=== PATIENT | male | born 1940 | race Caucasian/White ===

== ENCOUNTER 2017-10-20 08:07 | Day surgery (SDC) | payer MEDICARE ==
[2017-10-15 15:44] VITALS: BMI 37.5
[2017-10-20 08:28] VITALS: RESP 16; TEMP 98.2
[2017-10-20] MEDS ORDERED: LIDOCAINE 1% 20 ML VIAL (10MG/ML) FOR IV START INTRADERMA ONE (08:35)
[2017-10-20] MEDS: LACTATED RINGERS 1,000 ML IV SCH ×2 (08:37→09:26)
[2017-10-20] MEDS ORDERED: PROPOFOL 10 MG/ML 20 ML VIAL IV ONE (09:30)
--- NOTE | 2017-10-20 09:59 | P.PCN ---
Date of Procedure: 10/20/17 Procedure(s) Performed: Procedure: Total colonoscopy. Preoperative diagnosis: Screening for neoplasia. Postoperative diagnosis: Diverticulosis with no evidence of acute diverticulitis , strictures, polyps or cancer. Preparation: HalfLytely prep. Sedation: Was provided by anesthesia. Brief clinical history: The patient is a 77-year-old male who is scheduled for this evaluation for screening for neoplasia age being his risk factor. There is family history of colon cancer in his maternal uncles who had cancer in their late 80s or 90s. The patient had no prior colonoscopy. He has no abdominal complaints, bleeding or anemia. Procedure: With the patient on his left lateral decubitus position and after informed consent and adequate sedation, the perianal area was inspected and it did not show any fissures or fistulas. There were no masses felt on digital rectal examination. The Olympus CFQ 160L video colonoscope was then inserted in the rectum in the usual fashion and advanced to the cecum. There were multiple diverticular orifices seen scattered along the length of the bowel, mostly on the left side and sigmoid with few where on the right side and around the hepatic flexure with no evidence of acute diverticulitis or strictures. No polyps or tumors were seen. I retroflexed the endoscope in the rectum before the endoscope was withdrawn. The patient tolerated the procedure well. Plan: The patient was reassured. Discussed dietary measures. He will follow up with you as planned. At his age, I did not recommend future surveillance colonoscopy and this can be kept as a contingency based on his overall health in the future. He will discuss that with you.
[2017-10-20 10:19] VITALS: BP 151/80; PULSE 77
== END 2017-10-20 10:18 | disposition home or self-care (01) ==
LOC: ORWHC2ENDO 08:07
DX: Z12.11 Encounter for screening for malignant neoplasm of colon (principal); K57.30 Diverticulosis of large intestine without perforation or abscess without bleeding; Z80.0 Family history of malignant neoplasm of digestive organs; I10 Essential (primary) hypertension; Z79.899 Other long term (current) drug therapy; Z79.1 Long term (current) use of non-steroidal anti-inflammatories (NSAID)
CPT/HCPCS: J2704; G0121